=== PATIENT | male | born 1995 ===

== ENCOUNTER 2018-10-31 20:48 | Emergency (ER) | payer SELFPAY ==
[2018-10-31 20:59] VITALS: BP 137/88; PULSE 84; TEMP 98.7; O2SAT 99
--- NOTE | 2018-10-31 21:50 | C.PDOC ---
History Of Present Illness Patient is a 23 year old male who presents to the ED c/o pain and swelling to his left ankle after he rolled it while playing basketball 1 day ago. Patient denies any other medical complaints at the present moment. Time Seen by Provider: 10/31/18 20:53 Chief Complaint (Nursing): Lower Extremity Problem/Injury History Per: Patient History/Exam Limitations: no limitations Onset/Duration Of Symptoms: Days (1) Current Symptoms Are (Timing): Still Present Recent travel outside of the [place]: No Additional History Per: Patient - Ankle/Foot Description Of Injury: Twisted Past Medical History Reviewed: Historical Data, Nursing Documentation, Vital Signs Vital Signs: Last Vital Signs Temp 98.7 F 10/31/18 20:56 Pulse 84 10/31/18 20:56 Resp 18 10/31/18 20:56 BP 137/88 10/31/18 20:56 Pulse Ox 99 10/31/18 20:56 - Medical History PMH: No Chronic Diseases Surgical History: No Surg Hx Family History: States: No Known Family Hx - Social History Hx Tobacco Use: No Hx Alcohol Use: No Hx Substance Use: No - Immunization History Hx Tetanus Toxoid Vaccination: Yes Hx Influenza Vaccination: No Hx Pneumococcal Vaccination: No Review Of Systems Musculoskeletal: Positive for: Foot Pain (left ankle ) Skin: Positive for: Bruising (left ankle ) Physical Exam - Physical Exam Appears: Well, Non-toxic, No Acute Distress Skin: Normal Color, Warm Head: Atraumatic, Normacephalic Eye(s): bilateral: Normal Inspection Extremity: Tenderness (metatarsal tenderness and medial malleolar area pain and swelling with ecchymosis around ankle ), No Deformity (left ankle ), No Other (proximal injuries ) Pulses: Left Radial: Normal, Right Radial: Normal Neurological/Psych: Oriented x3 ED Course And Treatment O2 Sat by Pulse Oximetry: 99 (on RA) Pulse Ox Interpretation: Normal Medical Decision Making Medical Decision Making: Plan: Xray Lft ankle no fx or dl noted on xray. caleb wrap applied and crutches given Disposition Counseled Patient/Family Regarding: Studies Performed, Diagnosis, Need For Followup - Disposition Referrals: [facility] [Outside] Disposition: HOME/ ROUTINE Disposition Time: 21:47 Condition: STABLE Instructions: Ankle Sprain (DC) Forms: General Discharge Instructions, [facility] (Malay), Work Excuse - Clinical Impression Clinical Impression: Left ankle sprain - PA / GREEK PROFESSOR / Resident Statement MD/DO has examined the patient and agrees with the treatment plan. - Scribe Statement The provider has reviewed the documentation as recorded by the Elke Feliz All medical record entries made by the Mayibbrianne were at my direction and personally dictated by me. I have reviewed the chart and agree that the record accurately reflects my personal performance of the history, physical exam, medical decision making, and the department course for this patient. I have also personally directed, reviewed, and agree with the discharge instructions and disposition.
[2018-10-31 22:10] VITALS: RESP 20
--- NOTE | 2018-11-01 11:03 | RAD ---
Date of service: 10/31/2018 PROCEDURE: Left Ankle Radiographs. HISTORY: injury COMPARISON: None available. FINDINGS: BONES: There are small ossific densities superior to the neck of the talus on lateral projection. No evidence of bone destruction. Bone alignment and mineralization are normal. There is an os trigonum. JOINTS: Small joint effusion. No osteoarthritis. Ankle mortise maintained. Talar dome intact SOFT TISSUES: Severe periarticular soft tissue swelling. OTHER FINDINGS: None. IMPRESSION: Small ossific densities superior to the talus on lateral projection may represent avulsion fractures in the appropriate clinical setting. Please correlate with point tenderness. Small joint effusion and severe periarticular soft tissue swelling. No dislocation. The final report is tagged to the PA review folder.
== END 2018-10-31 22:09 | disposition home or self-care (01) ==
LOC: C.ER 20:48
DX: S93.402A Sprain of unspecified ligament of left ankle, initial encounter (principal); Y93.67 Activity, basketball